=== PATIENT | male | born 1975 | race Caucasian/White ===

== ENCOUNTER 2020-05-09 03:50 | Emergency (ER) | payer MEDICAID ==
[~2020-05-09] VITALS: Ht 170.2 cm; Wt 90.7 kg
[2020-05-09] MEDS ORDERED: ONDANSETRON HCL/PF 4 MG/2 ML VIAL IVP ONE (04:00)
[2020-05-09] MEDS ORDERED: KETOROLAC TROMETHAMINE INJ 30 MG/ML VIAL IV ONE (04:00)
[2020-05-09] MEDS ORDERED: ONDANSETRON HCL/PF 4 MG/2 ML VIAL ONE ×2 (04:11→05:52)
[2020-05-09] MEDS ORDERED: KETOROLAC TROMETHAMINE 15 MG/ML VIAL ONE (04:11)
--- NOTE | 2020-05-09 04:22 | NUR ---
PT CAME TO THE ER BED 9 C/O LEFT FLANK PAIN FOR SINCE 20 MINUTES AGO. PATIENT STATES THAT HE HAD EXPERIENCED THIS PAIN FOR 15MINUTE 2 DAYS AGO AND IT WENT AWAY. PATIENT STATES HE DRINK A LOT OF SODA, AND DOES NOT DRINK TOO MUCH WATER. PATIENT IS AOX4. NO SOB. BREATHING EVENLY AND UNLABORED ON ROOM AIR. CONNECTED TO THE MONITOR
--- NOTE | 2020-05-09 04:23 | NUR ---
BLOOD COLLECTED AND SENT TO THE LAB. Addendum: 05/09/20 at 0424 by [facility] URINE COLLECTED AND SENT TO THE LAB.
[2020-05-09 04:32] LABS: BASOPHILS # (AUTO) 0.1 /CMM (0.0-0.2); BASOPHILS % (AUTO) 0.9 % (0.0-2.0); EOSINOPHILS % (AUTO) 0.9 % (0.0-6.0); HEMATOCRIT 47 % (39-51); HEMOGLOBIN 15.9 g/dL (13.5-17.5); LYMPHOCYTES # (AUTO) 2.4 /CMM (0.8-4.8); LYMPHOCYTES % (AUTO) 29.2 % (20.0-44.0); MEAN CORPUSCULAR HGB CONC 34 g/dl (31.0-36.0); MEAN CORPUSCULAR VOLUME 87 fL (80-96); MONOCYTES # (AUTO) 0.6 /CMM (0.1-1.30); MONOCYTES % (AUTO) 6.9 % (2.0-12.0); NEUTROPHILS # (AUTO) 5.1 /CMM (1.8-8.9); NEUTROPHILS % (AUTO) 62.1 % (43.0-81.0); PLATELET COUNT (AUTO) 210 /CMM (150-450); WHITE BLOOD COUNT (AUTO) 8.2 K/uL (4.3-11.0)
[2020-05-09 04:38] LABS: BILIRUBIN,URINE NEGATIVE (NEGATIVE); COLOR,URINE YELLOW (YELLOW); LEUKOCYTE ESTERASE ,URINE NEGATIVE (NEGATIVE); NITRITE, URINE NEGATIVE (NEGATIVE); PH,URINE 6.5 (5.0-8.0); PROTEIN,URINE NEGATIVE (NEGATIVE); UGLUCOSE NEGATIVE (NEGATIVE); UROBILINOGEN,URINE 0.2 EU/dL (0.2)
[2020-05-09 05:12] LABS: BACTERIA,URINE Few /HPF (None Seen); RBC,URINE 81-100 /HPF (0-2); SQUAMOUS EPITHELIAL CELL,UR Few /HPF (None Seen)
[2020-05-09] MEDS ORDERED: IBUP-1953 PO (05:14)
[2020-05-09] MEDS ORDERED: ONDA4TAB5 PO (05:14)
[2020-05-09] MEDS ORDERED: HYDR-3976 GT (05:14)
--- NOTE | 2020-05-09 05:20 | NUR ---
CALLED [facility] TO FOLLOW UP ON PATIENT'S CT RESULTS.
[2020-05-09 05:31] LABS: BILIRUBIN,DIRECT 0.1 mg/dL (0.0-0.2); BILIRUBIN,TOTAL 0.5 mg/dL (0.2-1.0); CREATININE 1.2 mg/dL (0.6-1.3); POTASSIUM 3.7 mmol/L (3.5-5.1); TOTAL PROTEIN, SERUM 7.4 g/dL (6.4-8.2)
[2020-05-09] MEDS ORDERED: MORPHINE SULFATE INJ 4 MG/ML DISP.SYRIN ONE (05:52)
--- NOTE | 2020-05-09 05:59 | NUR ---
CALLED [facility] REGARDING FOLLOW UP ON IMAGING.
[2020-05-09] MEDS ORDERED: MORPHINE SULFATE INJ 10 MG/ML DISP.SYRIN IV ONE (06:00)
[2020-05-09] MEDS ORDERED: ONDANSETRON HCL/PF 4 MG/2 ML VIAL IV ONE (06:00)
--- NOTE | 2020-05-09 06:40 | NUR ---
CALLED [facility] REGARDING FOLLOW UP FOR CT READING.
--- NOTE | 2020-05-09 07:03 | NUR ---
IV removed. Catheter intact and site benign. Pressure and 4x4 applied to site. No bleeding noted.
[2020-05-09 07:04] VITALS: BP 126/71
--- NOTE | 2020-05-09 07:04 | NUR ---
Patient discharged to home in stable condition. Written and verbal after care instructions given. Patient verbalizes understanding of instruction.
--- NOTE | 2020-05-09 07:04 | NUR ---
PATIENT WILL CALL [facility] TO PICK HIM UP.
== END 2020-05-09 07:04 | disposition home or self-care (01) ==
LOC: ER 03:56
DX: N13.2 Hydronephrosis with renal and ureteral calculous obstruction (principal); Z79.899 Other long term (current) drug therapy
CPT/HCPCS: 36415; 74176; 80048; 80076; 81001; 83690; 85025; 96374; 96375; 96376; 99284; J1885; J2270; J2405 ×2

== ENCOUNTER 2020-12-18 23:49 | Inpatient (IN) | payer MEDICAID ==
[~2020-12-18] VITALS: Ht 170.2 cm; Wt 83.0 kg
[~2020-12-18 23:49] MED LIST: HYDR-3976 GT; IBUP-1953 PO; ONDA4TAB5 PO
--- NOTE | 2020-12-19 01:15 | NUR ---
PATIENT BIBSELF, C/O ABD PAIN FOR THE PAST 2 DAYS W/ LOOSE STOOL AND NAUSEA. PATIENT IS A/O X 4, RR EVEN AND UNLABORED, NO SOB NOTED. PATIENT CONNECETED TO MONITORS.
[2020-12-19 02:23] LABS: BASOPHILS # (AUTO) 0.1 K/uL (0.0-0.2); BASOPHILS % (AUTO) 0.6 % (0.0-2.0); EOSINOPHILS % (AUTO) 1.2 % (0.0-6.0); HEMATOCRIT 43 % (39-51); HEMOGLOBIN 14.6 g/dL (13.5-17.5); LYMPHOCYTES # (AUTO) 1.2 K/uL (0.8-4.8); LYMPHOCYTES % (AUTO) 11.4 % (20.0-44.0); MEAN CORPUSCULAR HGB CONC 34 g/dl (31.0-36.0); MEAN CORPUSCULAR VOLUME 88 fL (80-96); MONOCYTES # (AUTO) 0.7 K/uL (0.1-1.30); MONOCYTES % (AUTO) 6.6 % (2.0-12.0); NEUTROPHILS # (AUTO) 8.7 K/uL (1.8-8.9); NEUTROPHILS % (AUTO) 80.2 % (43.0-81.0); PLATELET COUNT (AUTO) 209 K/uL (150-450); RED BLOOD CELL COUNT(AUTO) 4.81 MIL/uL (4.5-6.0); WHITE BLOOD COUNT (AUTO) 10.9 K/uL (4.3-11.0)
[2020-12-19 02:31] LABS: CALCIUM, SERUM 8.8 mg/dL (8.5-10.1); POTASSIUM 4.2 mmol/L (3.5-5.1)
[2020-12-19 02:36] LABS: ALBUMIN 3.6 g/dL (3.4-5.0); BILIRUBIN,DIRECT 0.2 mg/dL (0.0-0.2); BILIRUBIN,TOTAL 1.2 mg/dL (0.2-1.0); TOTAL PROTEIN, SERUM 7.9 g/dL (6.4-8.2)
--- NOTE | 2020-12-19 03:20 | NUR ---
FAX CLINICALS TO [phone] [facility]
[2020-12-19] MEDS ORDERED: IV NS 0.9% 1,000 ML BAG IV ONE (04:00)
[2020-12-19] MEDS ORDERED: PIPERACILLIN /TAZOBACTAM 3.375 G in IV D5W 50 ML IV ONE ×2 (04:00→13:30)
[2020-12-19] MEDS ORDERED: PIPERACILLIN /TAZOBACTAM 3.375 G VIAL IV ONE (04:12)
--- NOTE | 2020-12-19 04:21 | NUR ---
COVID SWAB COLELCETED AND SENT TO LAB
--- NOTE | 2020-12-19 05:14 | NUR ---
SPOKE WITH [facility] [employer]ING CUTTER, PT IS GOING TO [facility] BUT AWAITING FOR ROOM
--- NOTE | 2020-12-19 13:40 | NUR ---
MRSA SWAB COLLECTED AND SENT TO LAB. PATIENT'S BELONGINGS LIST DONE.
--- NOTE | 2020-12-19 13:55 | NUR ---
GOT BED 311-2
--- NOTE | 2020-12-19 14:13 | NUR ---
report given to Carlos Manuel AMADO for delilah.
[2020-12-19] MEDS ORDERED: ZOLPIDEM TARTRATE 5 MG TABLET PO PRN (14:30)
[2020-12-19] MEDS ORDERED: ONDANSETRON HCL/PF 4 MG/2 ML VIAL IV PRN (14:30)
[2020-12-19] MEDS ORDERED: HYDROMORPHONE MDV 0.5 MG in IV D5W 50 ML IV PRN (14:30)
[2020-12-19] MEDS ORDERED: HYDROMORPHONE 1 MG/1 ML DISP.SYRIN IV PRN (14:30)
[2020-12-19] MEDS ORDERED: HYDROCODONE/APAP 5/325MG TABLET PO PRN (14:30)
[2020-12-19] MEDS ORDERED: ACETAMINOPHEN 325 MG TABLET PO PRN (14:30)
[2020-12-19] MEDS: IV D5 LR 1,000 ML IV PRN (14:38)
--- NOTE | 2020-12-19 15:21 | NUR ---
MS/RN NOTES RECEIVED REPORT FROM [facility] NURSE. PATIENT IS ALERT AND ORIENTED X4. PATIENT IS ON ROOM AIR. PATIENT IN NO APPARENT RESPIRATORY DISTRESS NOTED. COMPLAINED OF PAIN 4/10 REFUSED TAKING MEDICATION. INITIAL ASSESSMENT WAS DONE AND RECORDED. VITAL SIGN TAKEN AND RECORDED. WILL CONTINUE TO MONITOR.
[2020-12-19 16:00] VITALS: BP 128/86
--- NOTE | 2020-12-19 19:09 | NUR ---
MS/RN CLOSING NOTES PATIENT IS ALERT AND ORIENTED X4. PATIENT IS ON ROOM AIR. PATIENT IN NO APPARENT RESPIRATORY DISTRESS NOTED. NO COMPLAINED OF PAIN NOTED AT THIS TIME. SEEN AND EXAMINED BY MD WITH ORDERS MADE AND CARRIED OUT. ALL DUE MEDICATIONS WAS GIVEN. SAFETY PRECAUTION WAS IN PLACED BED IN LOWEST POSITION AND LOCKED. SIDERAILS UP X2.CALL LIGHT WITHIN REACH. WILL ENDORSED TO TEACHERS AIDE FOR DAIVD.
[2020-12-19 20:00] VITALS: BP 141/85
--- NOTE | 2020-12-19 20:02 | NUR ---
MS RN OPENING NOTES A/OX4; ABLE TO MAKE NEEDS KNOWN. PATIENT IS ON ROOM AIR; TOLERATING WELL WITH NO RESPIRATORY DISTRESS NOTED. DENIES PAIN OR DISCOMFORT AT THIS TIME. LAC #20G D5LR @100ML/HR; PATENT AND INTACT. SAFETY MEASURES IN PLACE: BED IN LOWEST LOCKED POSITION; SIDERAILS UP X2, CALL LIGHT WITHIN REACH. PT IN STABLE CONDITION; WILL CONTINUE PLAN OF CARE.
[2020-12-19] MEDS: PIPERACILLIN /TAZOBACTAM 3.375 G in IV D5W 50 ML IV SCH (20:39)
[2020-12-20] MEDS: IV D5 LR 1,000 ML IV PRN ×2 (01:15→14:27)
[2020-12-20] MEDS: PIPERACILLIN /TAZOBACTAM 3.375 G in IV D5W 50 ML IV SCH ×4 (01:15→20:28)
--- NOTE | 2020-12-20 01:56 | NUR ---
MS RN NOTE - PAIN PT C/O 10/05 ABD PAIN. ADMINISTERED DILAUDID ORDERED. WILL REASSESS FOR PAIN IN 30 MINUTES.
--- NOTE | 2020-12-20 06:14 | NUR ---
MS RN OPENING NOTES A/OX4; ABLE TO MAKE NEEDS KNOWN. PATIENT IS ON ROOM AIR; TOLERATING WELL WITH NO RESPIRATORY DISTRESS NOTED. DENIES PAIN OR DISCOMFORT AT THIS TIME. LAC #20G D5LR @100ML/HR; PATENT AND INTACT. MAINTAINED NPO DIET. SAFETY MEASURES IN PLACE: BED IN LOWEST LOCKED POSITION; SIDE RAILS UP X2, CALL LIGHT WITHIN REACH. PT IN STABLE CONDITION; WILL ENDORSE PLAN OF CARE TO ONCOMING MORNING RN.
[2020-12-20 07:31] LABS: CALCIUM, SERUM 8.4 mg/dL (8.5-10.1); CREATININE 0.8 mg/dL (0.6-1.3); POTASSIUM 3.5 mmol/L (3.5-5.1)
[2020-12-20 07:51] LABS: BASOPHILS % (AUTO) 0.3 % (0.0-2.0); EOSINOPHILS % (AUTO) 1.7 % (0.0-6.0); HEMATOCRIT 39 % (39-51); HEMOGLOBIN 13.3 g/dL (13.5-17.5); LYMPHOCYTES # (AUTO) 1.1 K/uL (0.8-4.8); LYMPHOCYTES % (AUTO) 11.6 % (20.0-44.0); MEAN CORPUSCULAR HGB CONC 35 g/dl (31.0-36.0); MEAN CORPUSCULAR VOLUME 88 fL (80-96); MONOCYTES # (AUTO) 0.7 K/uL (0.1-1.30); NEUTROPHILS # (AUTO) 7.7 K/uL (1.8-8.9); NEUTROPHILS % (AUTO) 79.4 % (43.0-81.0); PLATELET COUNT (AUTO) 206 K/uL (150-450); RED BLOOD CELL COUNT(AUTO) 4.37 MIL/uL (4.5-6.0); WHITE BLOOD COUNT (AUTO) 9.7 K/uL (4.3-11.0)
--- NOTE | 2020-12-20 07:52 | NUR ---
MS RN OPENING NOTES PATIENT ON BED AWAKE, A/OX4; ABLE TO MAKE NEEDS KNOWN. PATIENT IS ON ROOM AIR, BREATHING EVENLY AND NONLABORED; NO RESPIRATORY DISTRESS NOTED. PATIENT COMPLAINS OF HEADACHE 07/05. IV ACCESS ON LAC #20G D5LR @100ML/HR, PATENT AND INTACT. MAINTAINED NPO DIET. SAFETY MEASURES IN PLACE: BED IN LOWEST LOCKED POSITION, SIDE RAILS UP X2, CALL LIGHT WITHIN REACH. WILL CONTINUE TO MONITOR
[2020-12-20 08:39] VITALS: BP 118/78
[2020-12-20] MEDS ORDERED: ALBUTEROL FS 2.5 MG/3 ML VIAL.NEB ONE (10:57)
[2020-12-20 16:00] VITALS: BP 128/56
--- NOTE | 2020-12-20 18:46 | NUR ---
RN CLOSING NOTES PATIENT ON BED AWAKE. A/OX4, ABLE TO MAKE NEEDS KNOWN. PATIENT IS ON ROOM AIR, BREATHING EVENLY AND NONLABORED; NO SOB NOTED. IV ACCESS ON L HAND #22G D5LR @100ML/HR, PATENT AND INTACT. MAINTAINED NPO DIET EXCEPT MEDS. DUE MEDS GIVEN. SAFETY MEASURES IN PLACE: BED IN LOWEST LOCKED POSITION, SIDE RAILS UP X2, CALL LIGHT WITHIN REACH. WILL ENDORSE TO CHILD PSYCHOLOGY TEACHER NURSE FOR DAVID.
--- NOTE | 2020-12-20 19:55 | NUR ---
MS RN OPENING NOTE PATIENT AWAKE IN CHAIR, A/O X 4, PT ABLE TO MAKE NEEDS KNOWN , DENIES PAIN AT THIS TIME. PATIENT STABLE ON ROOM AIR, BREATHING EVEN AND NONLABORED; NO S/S OF DISTRESS OR SOB NOTED. IV ACCESS ON L HAND #22G RUNNING D5LR @100ML/HR. PATIENT IS NPO EXCEPT MEDS. SAFETY MEASURES IN PLACE: BED LOCKED IN LOWEST POSITION, SIDE RAILS UP X2, CALL LIGHT WITHIN REACH. WILL CONTINUE TO MONITOR PATIENT
[2020-12-20 20:00] VITALS: BP 124/88
[2020-12-21] MEDS: PIPERACILLIN /TAZOBACTAM 3.375 G in IV D5W 50 ML IV SCH ×4 (02:09→17:31)
[2020-12-21] MEDS: IV D5 LR 1,000 ML IV PRN (03:32)
--- NOTE | 2020-12-21 06:34 | NUR ---
MS RN CLOSING NOTES PATIENT AWAKE IN BED, A/O X 4, NO SIGNIFICANT CHANGES THROUGHOUT SHIFT. PATIENT STABLE ON ROOM AIR, BREATHING EVEN AND NONLABORED; NO S/S OF DISTRESS OR SOB NOTED. IV ACCESS ON L HAND #22G RUNNING D5LR @100ML/HR. PATIENT IS NPO EXCEPT MEDS. MEDICATIONS GIVEN ORDERED, PT NEEDS MET THROUGHOUT SHIFT. SAFETY MEASURES IN PLACE: BED LOCKED IN LOWEST POSITION, SIDE RAILS UP X2, CALL LIGHT WITHIN REACH. WILL ENDORSE TO DAY SHIFT NURSE FOR CONTINUITY OF CARE
--- NOTE | 2020-12-21 07:02 | NUR ---
MS RN OPENING NOTE RECEIVED PATIENT AWAKE IN CHAIR, A/O X 4, PT ABLE TO MAKE NEEDS KNOWN , DENIES PAIN AT THIS TIME. PATIENT STABLE ON ROOM AIR, BREATHING EVEN AND NONLABORED; NO S/S OF DISTRESS OR SOB NOTED. IV ACCESS ON L HAND #22G RUNNING D5LR @100ML/HR. PATIENT IS NPO EXCEPT MEDS. SAFETY MEASURES IN PLACE: BED LOCKED IN LOWEST POSITION, SIDE RAILS UP X2, CALL LIGHT WITHIN REACH. WILL CONTINUE TO MONITOR
[2020-12-21 08:00] VITALS: BP 131/63
[2020-12-21] MEDS ORDERED: LEVO500T90 PO (10:48)
[2020-12-21] MEDS ORDERED: METR500T PO (10:48)
--- NOTE | 2020-12-21 16:54 | NUR ---
RN NOTE PATIENT IS ASKING TO LEAVE, BUT MD WANTS TO FINISH ATB. STATED OKAY TO GIVE ATB EARLY. WILL CONTINUE TO MONITOR
--- NOTE | 2020-12-21 18:02 | NUR ---
TIE PRESSER NOTE RECEIVED DISCHARGE ORDER. PATIENT IS A/O X4. PATIENT IS BREATHING EVENLY AND NONLABORED ON ROOM AIR. NO SIGNS OF DISTRESS NOTED. NO COMPLAINTS OF PAIN AT THIS TIME. PATIENT WAS GIVEN DISCHARGE INSTRUCTIONS BOTH VERBALLY AND IN WRITTEN FORM AND PRESCRIPTION GIVEN. PATIENT VERBALIZED UNDERSTANDING. IV ACCESS WAS REMOVED CATHETER TIP INTACT AND PRESSURE DRESSING APPLIED, NO BLEEDING NOTED. PATIENT'S ID BAND WAS REMOVED. PATIENT LEFT IN STABLE CONDITION VIA PRIVATE CAR.
== END 2020-12-21 17:45 | disposition home or self-care (01) | DRG 244 ==
LOC: ER 23:55 → MED 12-19 14:05
PROVIDERS: ADMIT Internal Medicine; ATTEND Internal Medicine
DX: K57.20 Diverticulitis of large intestine with perforation and abscess without bleeding (principal); J98.11 Atelectasis; N20.0 Calculus of kidney; Z20.822 Contact with and (suspected) exposure to COVID-19
CPT/HCPCS: 36415; 80048-TC; 80076-TC; 83690-TC; 85025-TC; 87081-TC; C9803; G0378; J1170; J2543; J3490; J7060

== ENCOUNTER 2021-02-02 22:44 | Emergency (ER) | payer MEDICAID ==
[~2021-02-02] VITALS: Ht 170.2 cm; Wt 75.7 kg
[~2021-02-02 22:44] MED LIST changes: -HYDR-3976 GT; -IBUP-1953 PO; +LEVO500T90 PO; +METR500T PO; -ONDA4TAB5 PO
--- NOTE | 2021-02-02 23:16 | NUR ---
PT AAOX4. BIBS FOR C/O ABD PAIN, N/V/D X 2 DAYS. PLACED IN BED 11 ON MONITOR AND PULSE OX. AWAITING ER MD FOR EVAL AND ORDERS.
[2021-02-02] MEDS ORDERED: ONDANSETRON HCL/PF 4 MG/2 ML VIAL ONE (23:49)
[2021-02-02] MEDS ORDERED: MORPHINE SULFATE INJ 4 MG/ML DISP.SYRIN ONE (23:50)
[2021-02-03] MEDS ORDERED: ONDANSETRON HCL/PF 4 MG/2 ML VIAL IVP ONE
[2021-02-03] MEDS ORDERED: IV NS 0.9% 500 ML BAG IV ONE
[2021-02-03] MEDS ORDERED: MORPHINE SULFATE INJ 2 MG/ML DISP.SYRIN IV ONE
[2021-02-03 00:06] LABS: BASOPHILS % (AUTO) 0.4 % (0.0-2.0); EOSINOPHILS % (AUTO) 0.3 % (0.0-6.0); HEMATOCRIT 53 % (39-51); HEMOGLOBIN 17.7 g/dL (13.5-17.5); LYMPHOCYTES # (AUTO) 0.8 K/uL (0.8-4.8); LYMPHOCYTES % (AUTO) 12.1 % (20.0-44.0); MEAN CORPUSCULAR HGB CONC 33 g/dl (31.0-36.0); MEAN CORPUSCULAR VOLUME 87 fL (80-96); MONOCYTES # (AUTO) 0.6 K/uL (0.1-1.30); MONOCYTES % (AUTO) 8.8 % (2.0-12.0); NEUTROPHILS % (AUTO) 78.4 % (43.0-81.0); PLATELET COUNT (AUTO) 227 K/uL (150-450); RED BLOOD CELL COUNT(AUTO) 6.08 MIL/uL (4.5-6.0); WHITE BLOOD COUNT (AUTO) 6.3 K/uL (4.3-11.0)
[2021-02-03 00:10] LABS: BILIRUBIN,URINE MODERATE (NEGATIVE); COLOR,URINE YELLOW (YELLOW); LEUKOCYTE ESTERASE ,URINE Negative (NEGATIVE); NITRITE, URINE Negative (NEGATIVE); PH,URINE 5.5 (5.0-8.0); PROTEIN,URINE 100 mg/dl (NEGATIVE); UGLUCOSE Negative (NEGATIVE); UROBILINOGEN,URINE 0.2 EU/dL (0.2)
[2021-02-03 00:13] LABS: BACTERIA,URINE Rare /HPF (None Seen); SQUAMOUS EPITHELIAL CELL,UR Few /HPF (None Seen); WBC,URINE NONE SEEN /HPF (0-3)
[2021-02-03 00:23] LABS: CALCIUM, SERUM 9.3 mg/dL (8.5-10.1); CARBON DIOXIDE 27 mmol/L (21-32); CHLORIDE 99 mmol/L (98-107); CREATININE 1.2 mg/dL (0.6-1.3); GLUCOSE 102 mg/dL (74-106); POTASSIUM 3.5 mmol/L (3.5-5.1); SODIUM SERUM 137 mmol/L (136-145); UREA NITROGEN, BLOOD 17 mg/dL (7-18)
[2021-02-03 00:29] LABS: ALANINE AMINOTRANSFERASE 24 U/L (12-78); ALBUMIN 3.8 g/dL (3.4-5.0); ALKALINE PHOSPHATASE 103 U/L (46-116); ASPARTATE AMINOTRANSFERASE 13 U/L (15-37); BILIRUBIN,DIRECT 0.1 mg/dL (0.0-0.2); BILIRUBIN,TOTAL 0.7 mg/dL (0.2-1.0); LIPASE 76 U/L (73-393); TOTAL PROTEIN, SERUM 8.5 g/dL (6.4-8.2)
--- NOTE | 2021-02-03 01:35 | NUR ---
IV removed. Catheter intact and site benign. Pressure and 4x4 applied to site. No bleeding noted. Patient discharged to home in stable condition. Written and verbal after care instructions given. Patient verbalizes understanding of instruction.
[2021-02-03 01:36] VITALS: BP 119/76
== END 2021-02-03 01:38 | disposition home or self-care (01) ==
LOC: ER 22:45
DX: R10.84 Generalized abdominal pain (principal); R11.2 Nausea with vomiting, unspecified
CPT/HCPCS: 36415; 71045; 74176; 80048; 80076; 81001; 83690; 84484; 85025; 85730; 93005; 96374; 96375; 99285; J2270; J2405; J7040

== ENCOUNTER 2021-04-06 08:54 | Emergency (ER) | payer MEDICAID ==
[~2021-04-06] VITALS: Ht 170.2 cm; Wt 79.4 kg
--- NOTE | 2021-04-06 09:26 | NUR ---
TO ER BED 11, REQUESTED TO COLLECT CLEAN CATCH URINE,AWAITING MD SAMUEL.
[2021-04-06 10:04] LABS: BILIRUBIN,URINE SMALL (NEGATIVE); COLOR,URINE YELLOW (YELLOW); LEUKOCYTE ESTERASE ,URINE NEGATIVE (NEGATIVE); NITRITE, URINE NEGATIVE (NEGATIVE); PH,URINE 5.5 (5.0-8.0); PROTEIN,URINE 100 mg/dl (NEGATIVE); UGLUCOSE NEGATIVE (NEGATIVE); UROBILINOGEN,URINE 0.2 EU/dL (0.2)
[2021-04-06 11:01] LABS: RBC,URINE TOO NUMEROUS TO COUN /HPF (0-2)
[2021-04-06 11:02] LABS: BACTERIA,URINE None seen /HPF (None Seen); SQUAMOUS EPITHELIAL CELL,UR None Seen /HPF (None Seen)
[2021-04-06 12:40] VITALS: BP 122/96
--- NOTE | 2021-04-06 12:40 | NUR ---
Patient discharged to home in stable condition. Written and verbal after care instructions given. Patient verbalizes understanding of instruction.
== END 2021-04-06 12:41 | disposition home or self-care (01) ==
LOC: ER 09:03
DX: R31.9 Hematuria, unspecified (principal); N50.812 Left testicular pain; K57.92 Diverticulitis of intestine, part unspecified, without perforation or abscess without bleeding; Z87.442 Personal history of urinary calculi; Z79.899 Other long term (current) drug therapy
CPT/HCPCS: 76770-TC; 76870-TC; 81001

== ENCOUNTER 2021-12-25 12:13 | Emergency (ER) | payer MEDICAID ==
[~2021-12-25] VITALS: Ht 170.2 cm; Wt 81.6 kg
[2021-12-25] MEDS ORDERED: IV NS 0.9% 1,000 ML BAG IV ONE (12:30)
[2021-12-25] MEDS ORDERED: KETOROLAC TROMETHAMINE INJ 30 MG/ML VIAL IV ONE (12:30)
[2021-12-25] MEDS ORDERED: KETOROLAC TROMETHAMINE INJ 30 MG/ML VIAL ONE (12:40)
--- NOTE | 2021-12-25 13:00 | NUR ---
PATIENT ARRIVED TO ER FROM HOME FOR ABDOMINAL PAIN, BED 8
--- NOTE | 2021-12-25 13:11 | NUR ---
Trixie SERNA # 20g SHIVAM ESTABLISHED
--- NOTE | 2021-12-25 13:12 | NUR ---
BLOOD SAMPLE COLLECTED BY LAB
--- NOTE | 2021-12-25 13:13 | NUR ---
URINE SAMPLE COLLECTED AND SENT TO LAB
[2021-12-25 13:30] LABS: BASOPHILS % (AUTO) 0.3 % (0.0-2.0); EOSINOPHILS % (AUTO) 0.4 % (0.0-6.0); HEMATOCRIT 44 % (39-51); HEMOGLOBIN 14.6 g/dL (13.5-17.5); LYMPHOCYTES # (AUTO) 0.9 K/uL (0.8-4.8); LYMPHOCYTES % (AUTO) 11.9 % (20.0-44.0); MEAN CORPUSCULAR HGB CONC 33 g/dl (31.0-36.0); MEAN CORPUSCULAR VOLUME 88 fL (80-96); MONOCYTES # (AUTO) 0.3 K/uL (0.1-1.30); MONOCYTES % (AUTO) 3.9 % (2.0-12.0); NEUTROPHILS # (AUTO) 6.7 K/uL (1.8-8.9); NEUTROPHILS % (AUTO) 83.5 % (43.0-81.0); PLATELET COUNT (AUTO) 208 K/uL (150-450); RED BLOOD CELL COUNT(AUTO) 5.02 MIL/uL (4.5-6.0)
[2021-12-25 13:33] LABS: BILIRUBIN,URINE NEGATIVE (NEGATIVE); COLOR,URINE YELLOW (YELLOW); LEUKOCYTE ESTERASE ,URINE NEGATIVE (NEGATIVE); NITRITE, URINE NEGATIVE (NEGATIVE); PH,URINE 5.5 (5.0-8.0); PROTEIN,URINE 30 mg/dl (NEGATIVE); UGLUCOSE NEGATIVE (NEGATIVE); UROBILINOGEN,URINE 0.2 EU/dL (0.2)
[2021-12-25 14:03] LABS: BACTERIA,URINE 1+ /HPF (None Seen)
[2021-12-25] MEDS ORDERED: IOHEXOL-300 100 ML VIAL IV ONE (14:41)
[2021-12-25] MEDS ORDERED: IV NS 0.9% 250 ML IV ONE (14:41)
[2021-12-25 14:56] LABS: BILIRUBIN,DIRECT 0.1 mg/dL (0.0-0.2); BILIRUBIN,TOTAL 0.6 mg/dL (0.2-1.0); CALCIUM, SERUM 8.6 mg/dL (8.5-10.1); CREATININE 1.2 mg/dL (0.6-1.3)
[2021-12-25 14:57] LABS: ALBUMIN 3.8 g/dL (3.4-5.0); TOTAL PROTEIN, SERUM 6.8 g/dL (6.4-8.2)
[2021-12-25] MEDS ORDERED: MORPHINE SULFATE INJ 2 MG/ML DISP.SYRIN ONE (15:25)
[2021-12-25] MEDS ORDERED: KETO10TA2 PO (15:25)
[2021-12-25] MEDS ORDERED: HYDR-4209 PO (15:25)
[2021-12-25] MEDS ORDERED: TAMS-12 PO (15:25)
[2021-12-25] MEDS ORDERED: TRAMADOL HCL 50 MG TABLET PO ONE (15:30)
[2021-12-25] MEDS ORDERED: MORPHINE SULFATE INJ 2 MG/ML DISP.SYRIN IV ONE (15:30)
--- NOTE | 2021-12-25 15:36 | NUR ---
IV removed. Catheter intact and site benign. Pressure and 4x4 applied to site. No bleeding noted.Patient discharged to home in stable condition. Written and verbal after care instructions given. Patient verbalizes understanding of instruction.
[2021-12-25 15:37] VITALS: BP 138/92
== END 2021-12-25 15:37 | disposition home or self-care (01) ==
LOC: ER 12:13
DX: N20.0 Calculus of kidney (principal); Z87.442 Personal history of urinary calculi; Z79.899 Other long term (current) drug therapy
CPT/HCPCS: 99285; 74177; 96374; 96375; 85025; 80048; 83690; 80076; 81001; 36415; J1885; J7030; J7050; J2270; Q9967

== ENCOUNTER 2022-02-11 00:20 | Emergency (ER) | payer MEDICAID ==
[~2022-02-11] VITALS: Ht 170.2 cm; Wt 81.6 kg
[~2022-02-11 00:20] MED LIST changes: +HYDR-4209 PO; +KETO10TA2 PO; +TAMS-12 PO
--- NOTE | 2022-02-11 02:08 | NUR ---
BIBSELF FROM HOME C/O ABD PAIN & CRAMPING X 7DAYS. C/O URINARY RETENTION X1 MONTH. -N/V. PT A/OX4. TOLERATING R/A WELL WITH NO RESP DISTRESS. RR EVEN AND NONLABORED. AMBULATORY WITH STEADY GAIT. SAFETY MEASURES IN PLACE.
--- NOTE | 2022-02-11 02:16 | NUR ---
URINE COLLECTED AND SENT TO LAB
[2022-02-11] MEDS ORDERED: ONDANSETRON HCL/PF 4 MG/2 ML VIAL ONE (02:39)
[2022-02-11] MEDS ORDERED: MORPHINE SULFATE INJ 4 MG/ML DISP.SYRIN ONE (02:40)
--- NOTE | 2022-02-11 02:50 | NUR ---
IV CANNULA G20 INSERTED ON LEFT AC. BLOOD DRAWN AND SENT TO LAB
[2022-02-11 02:58] LABS: BILIRUBIN,URINE NEGATIVE (NEGATIVE); COLOR,URINE YELLOW (YELLOW); LEUKOCYTE ESTERASE ,URINE NEGATIVE (NEGATIVE); NITRITE, URINE NEGATIVE (NEGATIVE); PROTEIN,URINE NEGATIVE (NEGATIVE); UGLUCOSE NEGATIVE (NEGATIVE); UROBILINOGEN,URINE 0.2 EU/dL (0.2)
[2022-02-11 02:58] LABS: BASOPHILS % (AUTO) 0.5 % (0.0-2.0); EOSINOPHILS % (AUTO) 1.5 % (0.0-6.0); HEMATOCRIT 44 % (39-51); HEMOGLOBIN 14.7 g/dL (13.5-17.5); LYMPHOCYTES # (AUTO) 1.9 K/uL (0.8-4.8); LYMPHOCYTES % (AUTO) 26.8 % (20.0-44.0); MEAN CORPUSCULAR HGB CONC 33 g/dl (31.0-36.0); MEAN CORPUSCULAR VOLUME 86 fL (80-96); MONOCYTES # (AUTO) 0.7 K/uL (0.1-1.30); MONOCYTES % (AUTO) 9.6 % (2.0-12.0); NEUTROPHILS # (AUTO) 4.4 K/uL (1.8-8.9); NEUTROPHILS % (AUTO) 61.6 % (43.0-81.0); PLATELET COUNT (AUTO) 214 K/uL (150-450); RED BLOOD CELL COUNT(AUTO) 5.11 MIL/uL (4.5-6.0); WHITE BLOOD COUNT (AUTO) 7.2 K/uL (4.3-11.0)
[2022-02-11] MEDS ORDERED: MORPHINE SULFATE INJ 2 MG/ML DISP.SYRIN IV ONE (03:00)
[2022-02-11] MEDS ORDERED: IV NS 0.9% 1,000 ML BAG IV ONE (03:00)
[2022-02-11] MEDS ORDERED: ONDANSETRON HCL/PF 4 MG/2 ML VIAL IVP ONE (03:00)
[2022-02-11 03:01] LABS: BACTERIA,URINE None seen /HPF (None Seen); RBC,URINE 0-2 /HPF (0-2); SQUAMOUS EPITHELIAL CELL,UR Rare /HPF (None Seen); WBC,URINE 0-2 /HPF (0-3)
[2022-02-11 03:04] LABS: CALCIUM, SERUM 8.5 mg/dL (8.5-10.1); CREATININE 0.9 mg/dL (0.6-1.3); POTASSIUM 3.7 mmol/L (3.5-5.1)
[2022-02-11 03:10] LABS: ALBUMIN 3.7 g/dL (3.4-5.0); BILIRUBIN,DIRECT 0.1 mg/dL (0.0-0.2); BILIRUBIN,TOTAL 0.5 mg/dL (0.2-1.0); TOTAL PROTEIN, SERUM 7.2 g/dL (6.4-8.2)
--- NOTE | 2022-02-11 03:22 | NUR ---
PT TAKEN TO CT VIA NAILA
--- NOTE | 2022-02-11 03:27 | NUR ---
PT RETURNED TO ER BED [address]
[2022-02-11] MEDS ORDERED: HYDR-3972 PO (04:18)
[2022-02-11] MEDS ORDERED: CIPR500T5 PO (04:18)
[2022-02-11] MEDS ORDERED: METR500T PO (04:18)
[2022-02-11] MEDS ORDERED: IBUP-1957 PO (04:18)
[2022-02-11] MEDS ORDERED: CIPROFLOXACIN HCL 500 MG TABLET ONE (04:22)
[2022-02-11] MEDS ORDERED: METRONIDAZOLE 500 MG TABLET ONE (04:24)
[2022-02-11] MEDS ORDERED: CIPROFLOXACIN HCL 500 MG TABLET PO ONE (04:30)
[2022-02-11] MEDS ORDERED: METRONIDAZOLE 500 MG TABLET PO ONE (04:30)
--- NOTE | 2022-02-11 04:32 | NUR ---
Patient discharged to home in stable condition. Written and verbal after care instructions given. Patient verbalizes understanding of instruction.
--- NOTE | 2022-02-11 04:32 | NUR ---
IV CANNULA REMOVED
[2022-02-11 04:36] VITALS: BP 121/81
== END 2022-02-11 04:38 | disposition home or self-care (01) ==
LOC: ER 00:23
DX: K57.32 Diverticulitis of large intestine without perforation or abscess without bleeding (principal); Z87.442 Personal history of urinary calculi
CPT/HCPCS: 99284; 74176; 96374; 96361; 96375; 85025; 80048; 83690; 80076; 81001; 36415; J2270; J2405; J7030

== ENCOUNTER 2022-02-17 14:45 | Emergency (ER) | payer MEDICAID ==
[~2022-02-17] VITALS: Ht 170.2 cm; Wt 81.6 kg
[~2022-02-17 14:45] MED LIST changes: +CIPR500T5 PO; +HYDR-3972 PO; +IBUP-1957 PO
[2022-02-17] MEDS ORDERED: KETOROLAC TROMETHAMINE INJ 30 MG/ML VIAL IV ONE (15:30)
[2022-02-17] MEDS ORDERED: METRONIDAZOLE 500MG/ NS 100ML 500 MG in PREMIX 1 EA IV SCH (15:30)
[2022-02-17] MEDS ORDERED: CEFTRIAXONE 1 G in IV D5W 50 ML IV SCH (15:30)
[2022-02-17] MEDS ORDERED: IV NS 0.9% 1,000 ML BAG IV ONE (15:30)
--- NOTE | 2022-02-17 15:30 | NUR ---
IV LINE ESTABLISHED ON RFA #20, BLOOD DRAWN AND COLLECTED BY PHLEB AT BEDSIDE.
[2022-02-17] MEDS ORDERED: CEFTRIAXONE 1GM BAG (ER ONLY) 50 ML IV ONE (15:34)
[2022-02-17] MEDS ORDERED: KETOROLAC TROMETHAMINE INJ 30 MG/ML VIAL ONE (15:34)
--- NOTE | 2022-02-17 15:42 | NUR ---
URINE SAMPLE COLLECTED AND SENT TO LAB
[2022-02-17 15:54] LABS: ALBUMIN 4.1 g/dL (3.4-5.0); BILIRUBIN,DIRECT 0.2 mg/dL (0.0-0.2); BILIRUBIN,TOTAL 0.9 mg/dL (0.2-1.0); CALCIUM, SERUM 8.9 mg/dL (8.5-10.1); CREATININE 1.1 mg/dL (0.6-1.3); POTASSIUM 3.7 mmol/L (3.5-5.1); TOTAL PROTEIN, SERUM 7.5 g/dL (6.4-8.2)
[2022-02-17] MEDS ORDERED: METRONIDAZOLE 500MG/ NS 100ML 500 MG in PREMIX 1 EA IV ONE (16:00)
[2022-02-17] MEDS ORDERED: IV NS 0.9% 250 ML IV ONE (16:02)
[2022-02-17] MEDS ORDERED: IOHEXOL-300 100 ML VIAL IV ONE (16:02)
--- NOTE | 2022-02-17 16:02 | NUR ---
PT TAKEN TO RADIOLOGY FOR CT
[2022-02-17 16:11] LABS: BILIRUBIN,URINE NEGATIVE (NEGATIVE); COLOR,URINE YELLOW (YELLOW); LEUKOCYTE ESTERASE ,URINE NEGATIVE (NEGATIVE); NITRITE, URINE NEGATIVE (NEGATIVE); PH,URINE 5.5 (5.0-8.0); PROTEIN,URINE NEGATIVE (NEGATIVE); UGLUCOSE NEGATIVE (NEGATIVE); UROBILINOGEN,URINE 0.2 EU/dL (0.2)
--- NOTE | 2022-02-17 16:30 | NUR ---
PT RETURNED FROM RADIOLOGY
[2022-02-17 16:50] LABS: BASOPHILS # (AUTO) 0.1 K/uL (0.0-0.2); BASOPHILS % (AUTO) 0.9 % (0.0-2.0); EOSINOPHILS % (AUTO) 1.3 % (0.0-6.0); HEMATOCRIT 43 % (39-51); HEMOGLOBIN 14.8 g/dL (13.5-17.5); LYMPHOCYTES # (AUTO) 1.4 K/uL (0.8-4.8); LYMPHOCYTES % (AUTO) 19.8 % (20.0-44.0); MEAN CORPUSCULAR HGB CONC 35 g/dl (31.0-36.0); MEAN CORPUSCULAR VOLUME 86 fL (80-96); MONOCYTES # (AUTO) 0.5 K/uL (0.1-1.30); MONOCYTES % (AUTO) 7.8 % (2.0-12.0); NEUTROPHILS # (AUTO) 4.9 K/uL (1.8-8.9); NEUTROPHILS % (AUTO) 70.2 % (43.0-81.0); PLATELET COUNT (AUTO) 230 K/uL (150-450); RED BLOOD CELL COUNT(AUTO) 5.01 MIL/uL (4.5-6.0)
[2022-02-17 17:10] LABS: BACTERIA,URINE None seen /HPF (None Seen); SQUAMOUS EPITHELIAL CELL,UR 0-2 /HPF (None Seen); WBC,URINE 0-2 /HPF (0-3)
[2022-02-17 17:11] LABS: MUCUS,URINE Few /LPF (None Seen)
--- NOTE | 2022-02-17 17:50 | NUR ---
IV removed. Catheter intact and site benign. Pressure and 4x4 applied to site. No bleeding noted.
--- NOTE | 2022-02-17 17:59 | NUR ---
Patient discharged to home in stable condition. Written and verbal after care instructions given. Patient verbalizes understanding of instruction.
[2022-02-17 18:11] VITALS: BP 141/80
== END 2022-02-17 18:11 | disposition home or self-care (01) ==
LOC: ER 14:48
DX: R10.9 Unspecified abdominal pain (principal); Z87.19 Personal history of other diseases of the digestive system; Z87.442 Personal history of urinary calculi; Z79.899 Other long term (current) drug therapy
CPT/HCPCS: 99285; 74177; 96365; 96367; 96375; 85025; 80048; 87040 ×2; 87086; 83605; 83690; 80076; 81001; 36415; J0696 ×2; J1885; J7060; J7030; J7050; A4216; Q9967

== ENCOUNTER 2022-07-18 18:21 | Emergency (ER) | payer MEDICAID ==
[~2022-07-18] VITALS: Ht 170.2 cm; Wt 84.1 kg
[2022-07-18] MEDS ORDERED: MORPHINE SULFATE INJ 2 MG/ML DISP.SYRIN IV ONE (19:00)
[2022-07-18] MEDS ORDERED: IV NS 0.9% 1,000 ML IV ONE (19:00)
[2022-07-18] MEDS ORDERED: MORPHINE SULFATE INJ 4 MG/ML DISP.SYRIN ONE (19:07)
--- NOTE | 2022-07-18 19:10 | NUR ---
BIBS FOR C/O ABDOMINAL PAIN 09/04 AND NAUSEA X 3 DAYS @1836. HX DIVERTICULITIS. REPORT RECEIVED FROM VIBHA AMADO FOR DAVID. PT AAOX4, LAYING COMFORTABLY IN BED, VITALS CHECKED.
--- NOTE | 2022-07-18 19:20 | NUR ---
hand off VIDHI AMADO
[2022-07-18 19:39] LABS: CALCIUM, SERUM 9.6 mg/dL (8.5-10.1); CREATININE 0.8 mg/dL (0.6-1.3); POTASSIUM 3.8 mmol/L (3.5-5.1)
[2022-07-18 19:45] LABS: ALBUMIN 4.3 g/dL (3.4-5.0); BILIRUBIN,DIRECT 0.3 mg/dL (0.0-0.2); BILIRUBIN,TOTAL 1.7 mg/dL (0.2-1.0); TOTAL PROTEIN, SERUM 7.8 g/dL (6.4-8.2)
--- NOTE | 2022-07-18 19:48 | NUR ---
URINE COLLECTED, SENT TO LAB
[2022-07-18 20:00] LABS: BASOPHILS % (AUTO) 0.6 % (0.0-2.0); EOSINOPHILS % (AUTO) 1.2 % (0.0-6.0); HEMATOCRIT 45 % (39-51); HEMOGLOBIN 15.2 g/dL (13.5-17.5); LYMPHOCYTES # (AUTO) 1.5 K/uL (0.8-4.8); LYMPHOCYTES % (AUTO) 25.3 % (20.0-44.0); MEAN CORPUSCULAR HGB CONC 34 g/dl (31.0-36.0); MEAN CORPUSCULAR VOLUME 87 fL (80-96); MONOCYTES # (AUTO) 0.4 K/uL (0.1-1.30); MONOCYTES % (AUTO) 7.5 % (2.0-12.0); NEUTROPHILS # (AUTO) 3.9 K/uL (1.8-8.9); NEUTROPHILS % (AUTO) 65.4 % (43.0-81.0); PLATELET COUNT (AUTO) 189 K/uL (150-450); RED BLOOD CELL COUNT(AUTO) 5.22 MIL/uL (4.5-6.0); WHITE BLOOD COUNT (AUTO) 5.9 K/uL (4.3-11.0)
[2022-07-18] MEDS ORDERED: AMOX-430 PO (20:47)
[2022-07-18 20:55] LABS: BILIRUBIN,URINE NEGATIVE (NEGATIVE); COLOR,URINE YELLOW (YELLOW); LEUKOCYTE ESTERASE ,URINE NEGATIVE (NEGATIVE); NITRITE, URINE NEGATIVE (NEGATIVE); PROTEIN,URINE NEGATIVE (NEGATIVE); UGLUCOSE NEGATIVE (NEGATIVE); UROBILINOGEN,URINE 0.2 EU/dL (0.2)
[2022-07-18 20:59] VITALS: BP 131/93
[2022-07-18 21:16] LABS: BACTERIA,URINE None seen /HPF (None Seen); SQUAMOUS EPITHELIAL CELL,UR None Seen /HPF (None Seen); WBC,URINE NONE SEEN /HPF (0-3)
== END 2022-07-18 20:59 | disposition home or self-care (01) ==
LOC: ER 18:26
DX: R10.9 Unspecified abdominal pain (principal); Z87.442 Personal history of urinary calculi; Z79.899 Other long term (current) drug therapy
CPT/HCPCS: 99285; 74176; 96374; 96361; 85025; 80048; 83690; 80076; 81001; 36415; J2270; J7030